=== PATIENT | male | born 1935 | race Caucasian/White ===

== ENCOUNTER → 2020-06-28 14:27 | Outpatient (BNVA) | payer MEDICARE, OTHER, SELFPAY | PROVIDERS: Family Provider Internal Medicine; PCP Internal Medicine; Visit Provider Nurse Practitioner Family | DX: N39.0 Urinary tract infection, site not specified (principal) | CPT/HCPCS: 81001 ==

== ENCOUNTER → 2020-10-04 09:09 | Outpatient (BNVA) | payer MEDICARE, OTHER, SELFPAY | PROVIDERS: Family Provider Internal Medicine; PCP Internal Medicine; Visit Provider Urology | DX: N40.1 Benign prostatic hyperplasia with lower urinary tract symptoms (principal); N39.41 Urge incontinence | CPT/HCPCS: 81003; 84153 ==

== ENCOUNTER → 2020-11-16 08:27 | Outpatient (BNVA) | payer MEDICARE, OTHER, SELFPAY | PROVIDERS: Family Provider Internal Medicine; PCP Internal Medicine; Visit Provider Urology | DX: N40.1 Benign prostatic hyperplasia with lower urinary tract symptoms (principal); N39.41 Urge incontinence | CPT/HCPCS: 81003 ==

== ENCOUNTER → 2021-05-16 09:18 | Outpatient (BNVA) | payer MEDICARE, OTHER, SELFPAY | PROVIDERS: Family Provider Internal Medicine; PCP Internal Medicine; Visit Provider Urology | DX: N40.1 Benign prostatic hyperplasia with lower urinary tract symptoms (principal) | CPT/HCPCS: 81003 ==

== ENCOUNTER → 2022-03-15 14:20 | Outpatient (BNVA) | payer MEDICARE, OTHER, SELFPAY | PROVIDERS: Family Provider Internal Medicine; PCP Internal Medicine; Visit Provider Nurse Practitioner Family | DX: N40.1 Benign prostatic hyperplasia with lower urinary tract symptoms (principal); R31.0 Gross hematuria; N39.41 Urge incontinence | CPT/HCPCS: 51798; 81003; 87086; 88112; 99213 ==

== ENCOUNTER 2022-04-04 07:28 | Outpatient (CLI) | payer MEDICARE, OTHER, SELFPAY ==
--- NOTE | 2022-04-04 | CT_ITS ---
WS: [id number] CT ABDOMEN AND PELVIS WITH AND WITHOUT CONTRAST HISTORY: GROSS HEMATURIA TECHNIQUE: Unenhanced 5 mm axial imaging first performed through the abdomen. Post contrast imaging t hrough the abdomen and pelvis. Oral contrast has been provided. Sagittal and coronal reformats are s ubmitted. All CT scans at [facility] use at least one of these dose optimization techniques: automated exposure control; mA and/or kV adjustment per patient size (includes targeted exams where d ose is matched to clinical indication); or iterative reconstruction. CONTRAST: Omnipaque 300; 95 mL IV. DLP: 3554.93 mGy.cm COMPARISON: None available. Lung bases are clear. Heart is normal size. Small hiatal hernia. Normal liver, gallbladder and spleen. Normal enhancement of the portal vein. No adrenal mass. There a re 2 low-attenuation lesions in the pancreatic head towards the uncinate process. They each measure a bout 9 mm in diameter. Not definitely associated with the common bile duct. The common bile duct is b est seen on the coronal reformats and normal caliber. There is no pancreatic duct dilatation or pancr eatic atrophy. RIGHT kidney: Normal size RIGHT kidney. Mild perinephric stranding. 2 mm calcification in the lower p ole. No renal mass identified. No uroepithelial filling defect. The ureter is incompletely distended with contrast. LEFT kidney: Normal size kidney. Mild perinephric stranding. There are several nonobstructing 2 to 3 mm calcifications in the mid to lower kidney. No uroepithelial filling defects. No solid enhancing ma sses. Partially distended ureter. Well-distended urinary bladder. There is mild diffuse bladder wall thickening and encroachment into t he urinary bladder by the prostate. There is a large bladder calcification measuring 18 x 14 mm. Ther e is a vascular enhancing nodule in the posterior bladder measuring 10 x 10 mm. This is inseparable f rom the encroaching prostate gland but due to its intense enhancement this needs to be further evalua karla for a possible actively bleeding bladder neoplasm. Prostate gland measures 4.7 x 5.2 cm and extends over length of 5.4 cm with calcification. Mild atherosclerosis aorta. Normally enhancing mesenteric arteries. Bilateral accessory renal arterie s. Stomach is well distended with fluid. No small bowel obstruction. Mild diffuse constipation and numer ous diverticula throughout the colon. No acute diverticulitis. Normal appendix. No adenopathy or ascites. No osteoblastic or osteolytic bone lesions. CT/CT abdomen pelvis wo/w [id number] IMPRESSION: 1. No renal mass or obstruction. 2. Very small bilateral nonobstructing renal calculi. 3. Urinary bladder calcification measures 18 x 14 mm. 4. Focal enhancing nodule in the base of the urinary bladder inseparable from the prostate measures 10 x 10 mm. This may be part of the prostate gland but du e to the enhancement and location this needs to be further evaluated for possib le bladder neoplasm. 5. Prostate gland enlargement with encroachment into the base of the urinary b ladder. 6. Mild bladder wall thickening is probably due to outlet obstruction. 7. There are 2 low-attenuation/cystic areas in the pancreatic head/uncinate pr ocess which need further evaluation. Due to location and appearance cystic neop lasm or IPMN should be considered. Recommend follow-up MRI pancreas with and wi thout contrast. 8. Pandiverticulosis.
[2022-04-04 08:18] LABS: Blood Urea Nitrogen 14 mg/dL (8-23)
[2022-04-04] MEDS: iohexol 300 mg/mL 100 mL Btl IV (08:44)
== END 2022-04-04 07:29 | disposition home or self-care (01) ==
LOC: RAD 07:30
PROVIDERS: PCP Internal Medicine; Visit Provider Urology
DX: N20.0 Calculus of kidney (principal); N40.0 Benign prostatic hyperplasia without lower urinary tract symptoms; R31.0 Gross hematuria; N40.1 Benign prostatic hyperplasia with lower urinary tract symptoms; N21.0 Calculus in bladder; N39.41 Urge incontinence; N30.80 Other cystitis without hematuria
CPT/HCPCS: 52000; 74178; 81003; 82565; 84520; 99214

== ENCOUNTER 2022-04-12 06:25 | Day surgery (SDC) | payer MEDICARE, OTHER, SELFPAY ==
[2022-04-11 12:04] VITALS: BMI 29.4
[2022-04-12] VITALS (7 sets, daily range): BP systolic 126–162; BP diastolic 75–92; PULSE 60–76; RESP 12–18; TEMP 36.1–36.3; O2SAT 93–95
--- NOTE | 2022-04-12 06:00 | W.PM.OPSUD ---
Surgery/Procedure H&P Update DATE OF PROCEDURE: April 12, 2022 DATE H&P PERFORMED: 04/04/22 H&P UPDATE INFORMATION: I have reviewed H&P completed within last 30 days, I have examined patient prior to procedure, No changes to prior documentation and H&P is in [facility] EMR on date indicated CHANGES TO PREVIOUS DOCUMENTATION: Cystoscopy in clinic confirmed bladder stone Also required dilation to pass scope PLANNED PROCEDURE: Operation Date: 04/12/22 08:05 Proposed Procedures p Cystolitholapaxy 26757,N21.0(Not Applicable) - Jabari Maldonado MD s Cystoscopy(Not Applicable) - Jabari Maldonado MD
[2022-04-12] MEDS: sodium chloride 0.9% 1,000 ML 30 ML IV (07:20)
--- NOTE | 2022-04-12 08:12 | ANES.PREANE2 ---
Pre-Anesthetic Assessment Height/Weight: Height 1.78 m Weight 92.986 kg Temp Pulse Resp BP Pulse Ox 97.4 F L 60 18 126/76 94 04/12/22 06:42 04/12/22 06:42 04/12/22 06:42 04/12/22 06:42 04/12/22 06:42 Preop Diagnosis: Cystolithiasis Operation Date: 04/12/22 08:05 Proposed Procedures p Cystolitholapaxy 49558,N21.0(Not Applicable) - Jabari Maldonado MD s Cystoscopy(Not Applicable) - Jabari Maldonado MD Familial anesthetic complications: None Was Beta Evelio taken within 24 hours: N/A Was Clonidine taken within 24 hours: N/A Last intake: Intake Last Liquid Date 04/11/22 Last Liquid Time 17:30 Last Solid Date 04/11/22 Last Solid Time 17:30 Social No alcohol and No tobacco Exam alert, oriented x 3, clear to auscultation bilaterally and regular rate & rhythm Airway Submandibular: within normal limits Cervical ROM: within normal limits Mallampati: Class II Dentition: chipped BPH Metabolic Mildly obese Anesthetic Plan ASA status: 2 Anesthesia: General Medications/Allergies Home Medications Medication Instructions Recorded Confirmed Last Taken Type finasteride 5 mg tablet 5 mg PO BID 06/25/20 04/11/22 04/12/22 History tamsulosin 0.4 mg capsule 0.4 mg PO BID #180 cap 03/15/22 04/11/22 04/12/22 Rx Allergies Allergy/AdvReac Type Severity Reaction Status Date / Time sulfamethoxazole Allergy RASH Verified 04/11/22 12:02 [From Bactrim] trimethoprim [From Bactrim] Allergy RASH Verified 04/11/22 12:02 Current Medications Generic Name Dose Route Start Last Admin Trade Name Freq PRN Reason Stop Dose Admin Sodium Chloride 1,000 mls @ 30 mls/hr 04/12/22 06:45 04/12/22 07:20 Sodium Chloride 0.9% IV 04/13/22 06:44 30 mls/hr .Q24H JOVON Administration PFSH Anesthesia Medical History (Updated 04/04/22 @ 09:32 by Jabari Maldonado MD) Bladder stone BPH NOS w ur obs/LUTS Durable benefit of TAMSULOSIN/FINASTERIDE Gross hematuria Urgency incontinence UTI (urinary tract infection) Family History Father , at age 84 Cancer CAD (coronary artery disease) Mother , at age 87 Cancer lung Other Diabetes Social History Smoking and tobacco status: former smoker Quit status (tobacco): has quit using tobacco Alcohol intake: never Adopted: No Caregiver/support person: No Lives independently: Yes Marital status: / Current occupational status: retired History of recent travel: No Data Anesthesia Cardiac Studies: No Data to Display
--- NOTE | 2022-04-12 08:16 | P.OP_ITS ---
Operative Report Date of procedure: April 12, 2022 Pre-op diagnosis: Bladder stone Post-op diagnosis: Bladder stone Fossa navicularis and meatal stenosis Procedure done: Urethral dilation with [place] sounds Cystolitholapaxy >2.5 cm Specimens removed/disposition: Stone fragments Pathology: Stone fragments Surgeon: Joel Anesthesia: General Estimated blood loss: Less than 5 cc Urine output: Not measured Complications: None Findings: Stone completely fragmented fragments removed Brief History: Mr. Hylton is a very pleasant 86-year-old white male recently evaluated for gross hematuria. Upper tracts on CT scan showed some small bilateral stones nonobstru cting he was found to have a bladder stone. Cystoscopy in the clinic confirm no other additional pathology and that this was a free-floating stone not dystrophic calcification on the malignant process etc. He did require some dilation of the urethra in order to pass the scope clinic and that is expected for today's procedure as well Procedure: After routine preoperative evaluation examination and obtaining of informed consent he was taken to the operating suite on 04/12/2022 where general anesthesia was started without difficulty after appropriate timeout was performed, SCDs confirmed to be functioning, preoperative antibiotics administered, beta-jony protocol confirmed. Prepped and draped in usual sterile fashion in dorsolithotomy position paying careful attention to avoiding pressure points. The urethral meatus was too tight to pass the scope and [place] sounds were used to dilate the fossa navicularis and the urethral meatus to 24 [place]. A 21 [place] cystoscope sheath with 30 degree lens was introduced into urethra meatus and advanced into the bladder without difficulty. The stone was easily located. A 365 ?m thulium superpulse laser fiber was utilized to fragment the stone into smaller fragments that could easily removed through the cystoscope with the Laura evacuator. Final inspection showed good hemostasis and no residual fragments. Bladder was drained with a 20 [place] High catheter 10 cc placed in the balloon and the procedure was completed. Catheter was left indwelling to allow healing of the distal urethra with dilation. Tolerated procedure well without complications and was awakened in the operating room and returned to the recovery room in stable condition. PLANS: 1. Anticipate discharge from outpatient surgery 2. Follow-up on Sunday for voiding trial in the clinic.
[2022-04-12] MEDS: levofloxacin-dextrose 5 % 500 MG/100 ML PREMIX 100 MG IV (08:20)
[2022-04-12] MEDS: lidocaine 2% Urojet 20 mL TOPICAL (08:46)
--- NOTE | 2022-04-12 10:39 | SUR.PHASEII ---
patient sent home with leg bad and educated on how to switch out leg bag to [place]. patient and family verbalized understanding
--- NOTE | 2022-04-12 16:31 | ANE.PACU2 ---
Inpatient post-anesthesia follow up: Airway intact: Yes Vital signs: Temperature 97.1 F Pulse Rate 63 Respiratory Rate 18 Blood Pressure 145/79 Pulse Oximetry 95 Oxygen Delivery Me thod Room Air Oxygen Flow Rate Fraction of Inspir ed Oxygen Hydration adequate: Yes Nausea and vomiting: No Pain level: 2 Mental status: Baseline
[2022-04-15 20:57] LABS: Stone Source BLADDER
== END 2022-04-12 10:30 | disposition home or self-care (01) ==
PROVIDERS: PCP Internal Medicine; Visit Provider Urology
PROC: 0TCB8ZZ Extirpation of Matter from Bladder, Via Natural or Artificial Opening Endoscopic (ICD-10-PCS; CPT 52318; principal; 2022-04-12 08:05)
PROC: 0TJB8ZZ Inspection of Bladder, Via Natural or Artificial Opening Endoscopic (ICD-10-PCS; CPT 52000; 2022-04-12 08:05)
DX: N21.0 Calculus in bladder (principal); N40.1 Benign prostatic hyperplasia with lower urinary tract symptoms; N13.8 Other obstructive and reflux uropathy; Z87.891 Personal history of nicotine dependence
CPT/HCPCS: 52318; 82365; 88300; J1100; J1956; J2405; J2704; J3010; J3490; J7030

== ENCOUNTER → 2022-04-14 10:55 | Outpatient (BNVA) | payer MEDICARE, OTHER, SELFPAY | PROVIDERS: PCP Internal Medicine; Visit Provider Nurse Practitioner Family | DX: N30.80 Other cystitis without hematuria (principal); N40.1 Benign prostatic hyperplasia with lower urinary tract symptoms; N21.0 Calculus in bladder | CPT/HCPCS: 99213 ==

== ENCOUNTER 2022-07-17 14:24 | Outpatient (CLI) | payer MEDICARE, OTHER, SELFPAY ==
--- NOTE | 2022-07-17 14:46 | XR_ITS ---
WS: [id number] KUB, AP view, 07/17/2022 Clinical Data: stones Comparison: CT abdomen pelvis, 04/04/2022. Findings: No abnormal intraabdominal masses or calcifications are seen. There is no dilatated small bowel or ev idence of obstruction. Bowel gas obscures the right kidney and most of the left kidney. There is degenerative change of the lower thoracic and all the lumbar vertebral bodies. The bladder is partly full. XR/XR KUB [id number] Impression: Moderate generalized ileus.
== END 2022-07-17 14:25 | disposition home or self-care (01) ==
LOC: RAD 14:32
PROVIDERS: PCP Internal Medicine; Visit Provider Urology
DX: N40.1 Benign prostatic hyperplasia with lower urinary tract symptoms (principal); N20.0 Calculus of kidney; R82.71 Bacteriuria; N21.0 Calculus in bladder
CPT/HCPCS: 51741; 51798; 74018; 81003; 87077; 87086; 87186; 99213